=== PATIENT | female | born 1940 | race Caucasian/White ===

== ENCOUNTER → 2017-05-29 | Outpatient (CLI) | payer OTHER, BC ==
[~2017-05-29] MED LIST: APAP500 PO; ASPIR 8181 M1 PO; LOSARTAN POTAS100 MG PO; SIMVASTATIN40 MG PO; ZIAC 5-6.25 MG1 EACH PO
== END ==
LOC: RAD 02:37
DX: Z12.31 Encounter for screening mammogram for malignant neoplasm of breast (principal)

== ENCOUNTER → 2018-06-16 | Outpatient (CLI) | payer OTHER, BC | LOC: RAD 03:09 | DX: Z12.31 Encounter for screening mammogram for malignant neoplasm of breast (principal); I10 Essential (primary) hypertension; M19.90 Unspecified osteoarthritis, unspecified site ==